=== PATIENT | female | born 1995 | race African-American/Black ===

== ENCOUNTER 2016-10-04 07:48 | Emergency (ER) | payer MEDICAID ==
--- NOTE | ~2016-10-04 | CT4 ---
[facility] A Service of [facility] RADIOLOGY TEXT RESULTS PATIENT: CHAVA ARIAS LOCATION: [facility] : [birth year] UNIT #: [id number] AGE: [address]: Yusef Benitez MD SEX: F ORDER DR: [id number] [id number] [facility] [place], [place] [address] [id number] MR#: [id number] Acc #: [id number] NAME: CHAVA ARIAS : 1995 SEX: F STUDY DATE/TIME: 10/04/2016 9:21 UNIT: [facility] ROOM: STUDY DESCRIPTION: CT Abd and Pelv Wo Cont Attending Physician: Yusef Benitez M.D. Ordering Physician: Yusef Benitez M.D. Primary Care Physician: No Primary Care Physician MEDICAL IMAGING REPORT This report is preliminary unless electronic signature is present EXAM CT scan of the abdomen and pelvis without contrast HISTORY Right sided flank pain for one day. COMPARISON No comparison. TECHNIQUE Axial 3 mm images were obtained through the abdomen and pelvis without IV or oral contrast. This CT exam was performed with one or more of the following radiation dose reduction techniques: automatic control, adjustment of mA and/or kV according to patient size, and iterative reconstruction. FINDINGS Lung bases are clear. The liver, gallbladder, spleen, pancreas and adrenal glands are normal. The left kidney is normal. The right kidney has mild perinephric edema and the kidney appears slightly swollen. No stones are identified. The ureter is not dilated. The aorta is normal in size. There is no retroperitoneal adenopathy. The bowel is normal. I do not see any evidence of appendicitis. Uterus and adnexal regions and bladder are normal. There is minimal thick fluid in pelvis. IMPRESSION 1. I do not see any evidence of appendicitis although the appendix is not visible. 2. The right kidney appears to be minimally swollen with minimal surrounding edema. No stones or hydronephrosis are identified. This is likely due to pyelonephritis. [facility] A Service of [facility] RADIOLOGY TEXT RESULTS PATIENT: CHAVA ARIAS LOCATION: [facility] : [birth year] UNIT #: [id number] AGE: [address]: Yusef Benitez MD SEX: F ORDER DR: Dictated by... Oscar Velasquez M.D. THIS IS AN ELECTRONICALLY VERIFIED REPORT Oscar Velasquez M.D. at 10/05/2016 3:06 PM OSWALDO/erlinda TD: 10/05/2016 01:48 JOB #: [id number] MEDICAL IMAGING REPORT COPY
[2016-10-04 07:10] LABS: BASOPHIL% 0.1 % (0-2.5); EOSINOPHIL% 0.1 % (0.0-7.0); HEMATOCRIT 38.9 % (35.0-45.0); HEMOGLOBIN 12.3 gm/dL (12.0-16.0); LYMPHOCYTE# 0.9 X10e3 (1.0-3.5); LYMPHOCYTE% 5.1 % (17.0-45.0); MEAN CELL VOLUME 78.8 FL (83-96); MEAN CORPUSCULAR HGB CONC 31.7 g/dL (30-36); MEAN PLATELET VOLUME 8.7 FL (6.5-11.5); MONOCYTE# 0.9 X10e3 (0-1.0); NEUTROPHIL# 15.8 X10e3 (1.5-7.1); NEUTROPHIL% 89.7 % (40-75); PLATELET COUNT 204 X10e3 (140-420); RED BLOOD COUNT 4.94 X10e (3.90-5.30); RED CELL DISTRIBUTION WIDTH 20.2 % (11.0-15.5); WHITE BLOOD COUNT 17.6 X10e3 (4.0-10.5)
[2016-10-04 07:11] LABS: DIFF IND YES
[2016-10-04 07:14] LABS: POIKILOCYTOSIS MOD
[2016-10-04 07:15] LABS: PLATELET ESTIMATE NORMAL (NORMAL)
[2016-10-04 07:25] LABS: ALBUMIN SERUM 4.3 g/dL (3.5-5.0); ALKALINE PHOSPHATASE 58 U/L (32-92); ALT (SGPT) 18 U/L (10-40); AST (SGOT) 25 U/L (10-42); BILIRUBIN,TOTAL 0.5 mg/dL (0.2-2.0); BLOOD UREA NITROGEN 8 mg/dL (9-23); BUN/CREATININE RATIO 11.42; CALCIUM SERUM 8.7 mg/dL (8.4-10.2); CARBON DIOXIDE 25 mmol/L (22-31); CHLORIDE 107 mmol/L (100-111); CREATININE SERUM 0.7 mg/dL (0.6-1.4); GLOM FILT RATE Estimated ABOVE60 mL/min (>60); GLUCOSE FASTING 97 mg/dL (70-110); POTASSIUM 3.8 mmol/L (3.5-5.1); PROTEIN TOTAL SERUM 7.7 g/dL (6.0-8.3); SODIUM 135 mmol/L (135-145)
[2016-10-04 08:29] LABS: URINE SOURCE CLEAN CATCH
[2016-10-04 08:38] LABS: URINE APPEARANCE CLEAR; URINE BILIRUBIN NEG (NEG); URINE BLOOD 1+ (NEG); URINE COLOR YELLOW; URINE GLUCOSE NEG (NEG); URINE KETONE 1+ (NEG); URINE LEUKOCYTE ESTERASE 2+ (NEG); URINE NITRATE POS (NEG); URINE PROTEIN 2+ (NEG); URINE SPECIFIC GRAVITY 1.013 (1.003-1.035); URINE UROBILINOGEN 0.2 MG/DL (NEG)
[2016-10-04 08:42] LABS: CULTURE INDICATED? YES; URINE BACTERIA AUWI 4+ (NEGATIVE); URINE SQUAMOUS EPITHELIAL CELL NONE SEEN /[HPF]; UWBCS1 AUWI 100-200 (0-5)
[2016-10-05] MEDS ORDERED: HYDROCODON-ACE1 EAC7 PO (14:36)
== END 2016-10-04 10:30 | disposition home or self-care (01) ==
LOC: CED 07:48
PROVIDERS: Emergency Medicine
DX: N10 Acute pyelonephritis (principal); F17.200 Nicotine dependence, unspecified, uncomplicated
CPT/HCPCS: 36415; 74176; 80053; 81003; 84703; 85025; 87086; 87088; 87186; 96361; 96365; 96375; 96376; 99284; J0696; J2270; J2405

== ENCOUNTER 2016-10-05 13:02 | Inpatient (IN) | payer MEDICAID ==
--- NOTE | ~2016-10-05 | HP ---
Unit #: [id number] #: [id number] Patient: CHAVA ARIAS [id number] [address] [address] [id number] MR#: [id number] NAME: CHAVA ARIAS ROOM: 03190 Age: 20 Sex: F Admission Date: 10/05/2016 : 1995 Attending Physician: Fallon Nuno M.D. HISTORY AND PHYSICAL CHIEF COMPLAINT Abdominal pain. HISTORY OF PRESENT ILLNESS The patient is a 20-year-old female who presented with abdominal pain mainly right flank pain. The patient was seen in the emergency room yesterday and was diagnosed with pyelonephritis on the right side and was discharged home on oral antibiotics. However, patient stated that patient went home and was unable to take any oral antibiotics secondary to vomiting. Patient was brought to the emergency room for the above reasons and is being admitted for failure of outpatient oral antibiotics. Patient was found to be hypotensive with blood pressure on arrival mainly 98/73. The patient also stated that patient smokes weed, and that was a few days ago. She denies any fever, chills, chest pain, diaphoresis, or dizziness. PAST MEDICAL HISTORY History of [id number] behavior and defiant behavior. PAST SURGICAL HISTORY None. FAMILY HISTORY Reviewed and none. HOME MEDICATIONS 1. Phenergan. 2. Hydrocodone. 3. Levofloxacin. ALLERGIES No known drug allergies. SOCIAL HISTORY Denies smoking cigarettes or alcohol but smokes marijuana. REVIEW OF SYSTEMS A 14-point review of systems was performed and only pertinent positive findings are described above. The remaining are negative. PHYSICAL EXAMINATION GENERAL: Patient is lying in bed not in acute distress. VITAL SIGNS: Temperature 99.1, pulse 105, respiratory rate 16, blood pressure 98/73, and saturating 100% on room air. HEENT: Head atraumatic, normocephalic. Pupils equal, round, and reactive Unit #: [id number] #: [id number] Patient: CHAVA ARIAS to light and accommodation. Extraocular movements are intact. Dry mucous membranes. NECK: Supple. No JVD. LUNGS: Clear to auscultation bilaterally. No rhonchi, no wheezing. HEART: Regular rate and rhythm. ABDOMEN: Soft. Positive bowel sounds. Right CVA tenderness. EXTREMITIES: No cyanosis, no clubbing, no pedal edema. NEUROLOGIC: Alert, awake, and oriented. No gross focal motor deficit. DIAGNOSTIC STUDIES LABORATORY: Glucose 93, BUN 9, creatinine 0.7, sodium 136, potassium 3.6, chloride 103, bicarb 23, calcium 8.7, total protein 7.2, albumin 3.6, total bilirubin 0.5, AST 16, ALT 17, and alkaline phosphatase 72. Lipase is 17. Lactic acid is 1.1. Beta hCG is negative. WBC 21.9, hemoglobin 11.4, hematocrit 35.2, platelets 175,000, and neutrophils 86.1 with bandemia with bands of 14%. Urinalysis shows 2+ leukocyte esterase, positive nitrites, 2+ protein, 100-200 urine WBCs, and 4+ urine bacteria. CT of the abdomen and pelvis shows the right kidney appears to be minimally swollen with minimal surrounding edema. No stones or hydronephrosis are identified. This is likely due to pyelonephritis. ASSESSMENT 1. Right-sided pyelonephritis. 2. Sepsis. 3. Marijuana abuse. PLAN Admit the patient to inpatient with telemetry. Continue with IV antibiotics with Rocephin and continue with sepsis protocol secondary to bandemia more than 10% and he is up to 14%. Continue pain control with morphine. Check urine toxicology and follow up with urine culture. Further recommendations will follow. Dictated by Cheryl Dixon TD: 10/05/2016 18:45 JOB #: [id number] HISTORY AND PHYSICAL X X HISTORY AND PHYSICAL
--- NOTE | ~2016-10-05 | DS ---
Unit #: [id number] #: [id number] Patient: CHAVA ARIAS [id number] [address] [place], [place] [address] [id number] MR#: [id number] NAME: CHAVA ARIAS ROOM: 468 Age: 20 Sex: F Admission Date: 10/05/2016 : 1995 Discharge Date: 10/07/2016 Attending Physician: Fallon Nuno M.D. DISCHARGE SUMMARY This is Dr. Nuno dictating. DISCHARGE DIAGNOSES 1. Right-sided pyelonephritis. 2. Sepsis. 3. Marijuana abuse. HOSPITAL COURSE The patient is a 20-year-old female who was admitted to the hospital on 10/05/2016 with acute pyelonephritis. The patient was seen in the emergency room with similar problem and was discharged on oral antibiotic with Cipro and pain medications. However, the patient was not able to take oral antibiotics and failed outpatient therapy. The patient has been admitted for the above reasons. The patient was hypotensive in the emergency room and at the time of arrival with blood pressure in the 98/73 and the patient had bandemia with leukocytosis and is being admitted as sepsis. During the hospital course, the patient received IV fluids, normal saline, and was started on IV antibiotics Rocephin. The patient showed improvement with IV antibiotics and fluids. The patient's cultures came back positive for E coli and sensitive to most oral antibiotics. The patient is discharged home on oral antibiotics. The nausea and vomiting subsided with Zofran. PHYSICAL EXAMINATION GENERAL: On examination, the patient is lying on a bed and not in acute distress. VITAL SIGNS: Temperature 98.4, pulse 77, respiratory rate 18, blood pressure 112/50. HEENT: Head, atraumatic, normocephalic. EENT, pupils equal, round, and reactive to light and accommodation. Extraocular movements are intact. NECK: Supple. No JVD. LUNGS: Clear to auscultation bilaterally. No rhonchi. No wheezing. HEART: Regular rate and rhythm. ABDOMEN: Soft. Positive bowel sounds. Minimal discomfort at the right. BACK: CVA, that is improving. EXTREMITIES: No cyanosis. No clubbing. NEUROLOGIC: Alert, awake, and oriented. No gross focal motor deficit. DIAGNOSTIC STUDIES LABORATORY RESULTS: The patient had a glucose of 112, BUN of 6, creatinine 0.7. WBC 15.2, hemoglobin 10.4, hematocrit 33.1, platelets 163. Comparison with this further blood work from this morning and the blood work from October 06. The patient had urine drug screen positive for Unit #: [id number] #: [id number] Patient: CHAVA ARIAS marijuana and opiates. The patient's blood cultures remain negative and the urine culture is positive for E coli. IMAGING STUDIES: The patient had a CT of the abdomen and pelvis that showed the right kidney appears to be minimally swelling with minimal surrounding edema. No stenosis or hydronephrosis are identified. This is likely due to pyelonephritis. DISCHARGE MEDICATIONS The patient is discharged on Omnicef because the patient has tolerated the IV ceftriaxone and switched to the p.o. suspension of Omnicef for 7 more days to finish a 10 day course of pyelonephritis. The patient is recommended to drink plenty of water and stay away from illicit drug abuse and follow with the primary care physician in 1 week. Dictated by... Cheryl Dixon/mague TD: 10/09/2016 02:36 JOB #: [id number] DISCHARGE SUMMARY X X DISCHARGE SUMMARY
[2016-10-05 14:07] LABS: BASOPHIL% 0.1 % (0-2.5); EOSINOPHIL% 0.1 % (0.0-7.0); HEMATOCRIT 35.2 % (35.0-45.0); HEMOGLOBIN 11.4 gm/dL (12.0-16.0); LYMPHOCYTE# 0.6 X10e3 (1.0-3.5); LYMPHOCYTE% 2.8 % (17.0-45.0); MEAN CELL VOLUME 78.2 FL (83-96); MEAN CORPUSCULAR HEMOGLOBIN 25.2 PG (28-34); MEAN CORPUSCULAR HGB CONC 32.3 g/dL (30-36); MONOCYTE# 2.4 X10e3 (0-1.0); MONOCYTE% 10.9 % (3.0-12.0); NEUTROPHIL# 18.8 X10e3 (1.5-7.1); NEUTROPHIL% 86.1 % (40-75); PLATELET COUNT 175 X10e3 (140-420); WHITE BLOOD COUNT 21.9 X10e3 (4.0-10.5)
[2016-10-05 14:08] LABS: DIFF IND YES
[2016-10-05 14:22] LABS: ALBUMIN SERUM 3.6 g/dL (3.5-5.0); ALKALINE PHOSPHATASE 72 U/L (32-92); ALT (SGPT) 17 U/L (10-40); AMYLASE 7 U/L (0-46); AST (SGOT) 16 U/L (10-42); BILIRUBIN, DIRECT 0.1 mg/dL (0.0-0.2); BILIRUBIN,INDIRECT 0.4 mg/dL (0.0-0.9); BILIRUBIN,TOTAL 0.5 mg/dL (0.2-2.0); BLOOD UREA NITROGEN 9 mg/dL (9-23); BUN/CREATININE RATIO 12.85; CALCIUM SERUM 8.7 mg/dL (8.4-10.2); CARBON DIOXIDE 23 mmol/L (22-31); CHLORIDE 103 mmol/L (100-111); CREATININE SERUM 0.7 mg/dL (0.6-1.4); GLOM FILT RATE Estimated ABOVE60 mL/min (>60); GLUCOSE FASTING 93 mg/dL (70-110); LIPASE 17 U/L (22-51); POTASSIUM 3.6 mmol/L (3.5-5.1); PROTEIN TOTAL SERUM 7.2 g/dL (6.0-8.3); SODIUM 136 mmol/L (135-145)
[2016-10-05] MEDS ORDERED: HYDROCODON-ACE1 EAC7 PO (14:36)
[2016-10-05 15:41] LABS: MICROCYTOSIS SL; PLATELET ESTIMATE NORMAL (NORMAL); POIKILOCYTOSIS MOD
[2016-10-05 20:16] LABS: AMPHETAMINE NEG (NEG); BARBITURATES NEG (NEG); BENZODIAZEPINES NEG (NEG); COCAINE NEG (NEG); MARIJUANA POS (NEG); OPIATES POS (NEG); TRICYCLIC ANTIDEPRESSANTS NEG (NEG); U METHADONE NEG (NEG)
[2016-10-06 03:14] LABS: HEMATOCRIT 33.1 % (35.0-45.0); HEMOGLOBIN 10.4 gm/dL (12.0-16.0); MEAN CELL VOLUME 78.9 FL (83-96); MEAN CORPUSCULAR HEMOGLOBIN 24.7 PG (28-34); MEAN CORPUSCULAR HGB CONC 31.4 g/dL (30-36); MEAN PLATELET VOLUME 8.9 FL (6.5-11.5); RED BLOOD COUNT 4.19 X10e (3.90-5.30); RED CELL DISTRIBUTION WIDTH 20.2 % (11.0-15.5); WHITE BLOOD COUNT 15.2 X10e3 (4.0-10.5)
[2016-10-06 03:37] LABS: BLOOD UREA NITROGEN 6 mg/dL (9-23); BUN/CREATININE RATIO 8.57; CALCIUM SERUM 8.3 mg/dL (8.4-10.2); CARBON DIOXIDE 25 mmol/L (22-31); CHLORIDE 109 mmol/L (100-111); CREATININE SERUM 0.7 mg/dL (0.6-1.4); GLOM FILT RATE Estimated ABOVE60 mL/min (>60); GLUCOSE FASTING 112 mg/dL (70-110); POTASSIUM 3.6 mmol/L (3.5-5.1); SODIUM 139 mmol/L (135-145)
[2016-10-07] MEDS ORDERED: OMNICEF250 MG/5 M PO (14:37)
== END 2016-10-07 15:40 | disposition home or self-care (01) | DRG 872 ==
LOC: CED 13:02 → CEDOF 13:20 → C4C 18:45
PROVIDERS: Emergency Medicine; Internal Medicine
DX: A41.51 Sepsis due to Escherichia coli [E. coli] (principal); N10 Acute pyelonephritis; B96.20 Unspecified Escherichia coli [E. coli] as the cause of diseases classified elsewhere; F12.10 Cannabis abuse, uncomplicated
CPT/HCPCS: 80048; 80076; 80307; 82150; 83605; 83690; 84703; 85025; 85027; 87040; 94760; 96361; 96365; 96375; 99291; J0696; J1650; J1885; J2270; J2405

== ENCOUNTER 2016-10-16 01:54 | Emergency (ER) | payer MEDICAID ==
[~2016-10-16 01:54] MED LIST: HYDROCODON-ACE1 EAC7 PO; OMNICEF250 MG/5 M PO
== END 2016-10-16 02:00 | disposition left against medical advice (07) ==
LOC: CED 01:54
DX: Z53.21 Procedure and treatment not carried out due to patient leaving prior to being seen by health care provider (principal)